=== PATIENT | female | born 1950 | race African-American/Black ===

== ENCOUNTER 2017-12-08 11:17 | Outpatient (CLI) | payer MEDICARE, MEDICAID | END 2017-12-08 11:18 | disposition home or self-care (01) | LOC: BICRAD 11:17 | PROVIDERS: ATTEND Family Medicine | DX: M25.552 Pain in left hip (principal) ==

== ENCOUNTER 2018-01-06 09:22 | Observation (INO) | payer MEDICARE, MEDICAID ==
--- NOTE | 2018-01-06 11:14 | CT ---
CT BRAIN WITHOUT CONTRAST: History: Fall, dizziness, lightheadedness, headache. FINDINGS: Comparison is made with exam of 08-22-11. The low attenuation of the anterior limb of the right internal capsule is stable. There is decreased attenuation in the anterior limb of the left internal capsule which appears to be new. No evidence of cortical infarct, hemorrhage, midline shift, or abnormal extraaxial fluid collections are seen. The ventricular size is normal and the basilar cisterns are patent. The bony calvarium is intact. The vis ualized sinuses and mastoids are well aerated. IMPRESSION: Focus of decreased attenuation in the anterior limb of the left internal capsule. It cannot be said w ith certainty if this is acute or chronic. Further evaluation with MRI would be helpful. POS: [facility]
[2018-01-06 12:49] LABS: #Eosinphils 0.1 thou/uL (0.0-0.7); #Lymphocytes 1.6 thou/uL (1.20-3.40); #Monocytes 0.4 thou/uL (0.11-0.59); #Neutrophils 2.7 thou/uL (1.40-6.50); %Basophils 0.7 % (0.0-1.0); %Eosinophils 2.4 % (0.0-10.0); %Monocytes 7.8 % (0.0-10.0); %Neutrophils 55.1 % (42.0-75.0); Hemoglobin 14.1 g/dL (12.0-16.0); Mean Corpuscular Volume 87.6 fl (81.0-99.0); Mean Platelet Volume 9.6 fL (7.4-10.4); Platelet Count 171 thou/uL (130-400); RBC Distribution Width 12.3 % (11.5-14.5); Red Blood Cell (RBC) Count 5.02 mill/uL (4.20-5.40); White Blood Cell (WBC) Count 4.8 thou/uL (4.8-10.8)
[2018-01-06 13:17] LABS: ALT (SGPT) 8 U/L (8-55); AST (SGOT) 12 U/L (5-34); Albumin 4.2 g/dL (3.4-4.8); Alkaline Phosphatase 92 U/L (40-150); Anion Gap 11 mmol/L (10-20); BUN (Urea Nitrogen) 9 mg/dL (9.8-20.1); Calc. Creatinine Clearance 0 mL/min (70-130); Calcium 9.7 mg/dL (7.8-10.44); Carbon Dioxide 26 mmol/L (23-31); Chloride 105 mmol/L (98-107); Estimated GFR-MDRD 80; Globulin 3.1 g/dL (2.4-3.5); Glucose 91 mg/dL (80-115); Protein, Total 7.3 g/dL (6.0-8.3); Sodium 138 mmol/L (136-145)
[2018-01-06] MEDS ORDERED: Zolpidem Tartrate 5 MG TAB PO PRN (13:29)
[2018-01-06] MEDS ORDERED: Acetaminophen 325 MG TAB PO PRN (13:29)
[2018-01-06] MEDS ORDERED: Guaifenesin DM 100-10/5 ML UDCUP PO PRN (13:29)
[2018-01-06] MEDS ORDERED: Senokot 8.6 MG TAB PO PRN (13:29)
[2018-01-06] MEDS ORDERED: Aspirin 325 mg Enteric Coated Tablet PO SCH (14:00)
--- NOTE | 2018-01-06 14:10 | HP ---
REASON FOR ADMISSION: Possible cerebrovascular accident. HISTORY OF PRESENT ILLNESS: The patient gives history of falling last Friday in the parking lot. She essentially slid down and fell to the floor. She got up by herself and went back to her car, but then has had nagging back pain and left thigh pain since then. So she went to see her primary care physician, Dr. Jaramillo this morning. The patient also mentioned to her that she was swaying more to the left when she is walking. When asked about this, the patient states it is because of pain that she is having. She is a right-handed person. She moves all 4 extremities here in the ER. She has had a CT brain done which shows decreased attenuation in the left internal capsule anterior limb. Has no complaints of chest pain, palpitation, PND or orthopnea. No complaints of any trouble moving any of her lower extremity or upper extremity joints. PAST MEDICAL AND SURGICAL HISTORY: Hypertension. No surgical history. CURRENT MEDICATIONS: Patient is on clonidine 0.1 mg p.o. twice daily, Ambien 5 mg p.o. at bedtime p.r.n. for insomnia. ALLERGIES: RAQUEL INHIBITORS, FLEXERIL, HYDROCHLOROTHIAZIDE, SULFA. PERSONAL HISTORY: Does not abuse alcohol or drugs. No history of smoking. Works in [employer]. Lives with her boyfriend. FAMILY HISTORY: Mother is healthy. She does not know much about her biological father. Has 4 children. Power of meat process worker is her boyfriend, Mr. José Miguel Navas. CODE STATUS: FULL. REVIEW OF SYSTEMS: The following complete review of systems was negative, unless otherwise mentioned in the HPI or below: Constitutional: Weight loss or gain, ability to conduct usual activities. Skin: Rash, itching. Eyes: Double vision, pain. ENT/Mouth: Nose bleeding, neck stiffness, pain, tenderness. Cardiovascular: Palpitations, dyspnea on exertion, orthopnea. Respiratory: Shortness of breath, wheezing, cough, hemoptysis, fever or night sweats. Gastrointestinal: Poor appetite, abdominal pain, heartburn, nausea, vomiting, constipation, or diarrhea. Genitourinary: Urgency, frequency, dysuria, nocturia. Musculoskeletal: Pain, swelling. Neurologic/Psychiatric: Anxiety, depression. Allergy/Immunologic: Skin rash, bleeding tendency. PHYSICAL EXAMINATION: GENERAL: Patient is a 67-year-old female who is currently not in any acute distress. VITAL SIGNS: Blood pressure 158/96, pulse 56 per minute, respiratory rate 16 per minute, temperature 98.8 degrees Fahrenheit, saturating 98% on room air. NECK: Supple, no elevated JVD. EYES: Extraocular muscles intact. Pupils reacting to light. ORAL CAVITY: Mucous membranes are moist. No exudates or congestion. CARDIOVASCULAR SYSTEM: S1, S2 heard. Regular rhythm. RESPIRATORY SYSTEM: Air entry 2+ bilateral. No rales or rhonchi. ABDOMEN: Soft, bowel sounds heard. No tenderness, rigidity or guarding. EXTREMITIES: No peripheral edema or calf tenderness. The patient has tenderness over the left lateral thighs. No obvious contusions, lacerations or external injuries seen. VASCULAR SYSTEM: Peripheral pulses are 2+ bilateral, no ischemic ulcerations or gangrene. CENTRAL NERVOUS SYSTEM: Cranial nerves are grossly intact. Strength is 5/5 in all four extremities. Reflexes are 2+ bilateral. Babinski is downgoing. Cerebellar signs are intact. Gait was not tested. PSYCHIATRIC SYSTEM: The patient's mood is euthymic. No hallucinations or delusions. LABORATORY DATA AND X-RAY FINDINGS: White count of 4, hemoglobin and hematocrit 14 and 44, platelet count 171, MCV is 87 with 55% neutrophils. Electrolytes are stable. BUN 9, creatinine 0.8, and glucose 91. Liver enzymes within normal limits. TSH 0.62, albumin is 4.2. CT brain without contrast done focus of decreased attenuation in the anterior limb of left internal capsule. EKG done shows sinus bradycardia at 52 beats per minute with signs of mild LVH. CLINICAL IMPRESSION AND PLAN: The patient will be under observation on the stroke unit for possible acute cerebrovascular accident on the left side based on CAT scan findings. Clinically, patient does not appear to have any weakness and has equal strength on both sides. We will obtain an MRI, echo with 2D Doppler, and CT scan of the pelvis and plain radiographs of the left knee as well in view of her history of fall and complete stroke protocol. We will place her on aspirin and Lipitor for now. She will be on a small dose of Norvasc for blood pressure. We will continue to closely monitor her on the Stroke Unit. We will follow stroke evidence based protocol. [facility]ENTERKaitlin
--- NOTE | 2018-01-06 14:38 | RAD ---
LEFT KNEE 3 VIEWS: HISTORY: Fall, left knee pain. FINDINGS/IMPRESSION: No fracture or dislocation is seen. No joint effusion is identified. POS: [facility]
[2018-01-06 15:11] VITALS: BMI 27.7
--- NOTE | 2018-01-06 15:25 | RAD ---
AP PELVIS: History: Fall, injury, pelvic pain. FINDINGS/IMPRESSION: There are degenerative changes in the lower lumbar spine and hip joints. No fracture or dislocation i s identified. POS: [facility]
--- NOTE | 2018-01-06 18:30 | MRI ---
MRI OF BRAIN WITHOUT IV CONTRAST 01/06/18 HISTORY: Patient feeling lightheaded and weak and off balance since yesterday. Patient reports headache for th ree days that was worse this morning. Patient has been dropping a lot of things recently. There are scattered punctate and patchy areas of increased FLAIR and T2 weighted signal intensity see n in the periventricular and subcortical white matter which are nonspecific but likely reflective of chronic small vessel ischemic changes. There are focal areas of increased FLAIR and T2 weighted signa l intensity seen at each basal ganglia which were noted on the recent CT scan examination as well and are most compatible with remote lacunar infarctions. There is no evidence of an acute infarction. Th e septum pellucidum and third ventricle are in the midline. The ventricular system is normal in size, shape and position. The distal right vertebral artery is dominant which is a normal variant. The flow voids at the base o f the brain are otherwise within normal limits. Mucosal thickening is present in right anterior ethmoidal air cells. Remainder of the paranasal sinus es and orbits have a normal MRI appearance. There is a subcentimeter increased T2 weighted signal intensity focus seen in the region of the pitui tary gland on the FLAIR and T2 weighted images. This cannot be further evaluated on this examination. This could potentially represent a Rathke's cleft cyst, but further evaluation is warranted. IMPRESSION: 1. Subcentimeter focus of increased T2 weighted signal intensity in the region of the pituitary gland. This cannot be further evaluated on this examination. While this could potentially represent a Rathke's cleft cyst, additional imaging is warranted. A nonemergent MRI brain following the pituitar y mass protocol is recommended. 2. Mild chronic small vessel ischemic changes. 3. Remote lacunar infarctions in each basal ganglia. 4. No acute intracranial abnormality is demonstrated. POS: [facility]
--- NOTE | 2018-01-06 18:32 | CON ---
DATE OF CONSULTATION: 01/06/2018 NEUROLOGY CONSULTATION CONSULTING PHYSICIAN: Hospitalist Service. IMPRESSION: 1. Left internal capsule lacunar infarction resulting in some mild gait instability and right hand c lumsiness. 2. Hypertension. PLAN: 1. Aspirin. 2. Statin. 3. Complete stroke workup. HISTORY OF PRESENT ILLNESS: Ms. Mayfield is a 67-year-old black female, who reports that for the last 3 months she has noticed she has been unsteady on her feet and has some clumsiness in the right hand. She did not seek any medical attention for this until she fell and injured her hip. Fortunately, he r x-rays of the hip were fine. Her CAT scan of the brain showed lacunar infarction in the internal c apsule on the left. EKG showed normal sinus rhythm. She has been admitted for further evaluation. PAST MEDICAL HISTORY: Hypertension. SOCIAL HISTORY: Unremarkable. ALLERGIES: Multiple as per chart. FAMILY HISTORY: Noncontributory. REVIEW OF SYSTEMS: No complaint of difficulty swallowing, facial numbness, slurred speech, double vi allan, headache, vertigo or incontinence. PHYSICAL EXAMINATION: GENERAL: This is a healthy appearing middle-aged woman, in no distress. VITAL SIGNS: Stable and she is afebrile. HEENT: Unremarkable. NECK: Supple. EXTREMITIES: No cyanosis. NEUROLOGIC: She is alert and appropriate. Her speech is fluent and clear. I did not appreciate any weakness or incoordination on exam. Sensation was intact. Plantar responses were equivocal. SUMMARY: A middle-aged woman with hypertension and probably suffered a lacunar infarction 3 months a go. She has been admitted for further evaluation. I will be happy to follow up with her as an outpa tient.
[2018-01-06] MEDS ORDERED: Atorvastatin Calcium 10 MG TAB PO SCH (21:00)
[2018-01-06] MEDS: Famotidine 20 MG TAB PO SCH (21:34)
[2018-01-07 05:57] LABS: #Eosinphils 0.2 thou/uL (0.0-0.7); #Lymphocytes 2.1 thou/uL (1.20-3.40); #Monocytes 0.5 thou/uL (0.11-0.59); #Neutrophils 2.2 thou/uL (1.40-6.50); %Basophils 0.2 % (0.0-1.0); %Eosinophils 3.3 % (0.0-10.0); %Lymphocytes 42.9 % (21.0-51.0); %Monocytes 9.3 % (0.0-10.0); %Neutrophils 44.3 % (42.0-75.0); Hemoglobin 12.4 g/dL (12.0-16.0); Mean Corpuscular HGB CONC 32.5 g/dL (32.0-36.0); Mean Corpuscular Hemoglobin 28.6 pg (27.0-31.0); Mean Corpuscular Volume 88.2 fl (81.0-99.0); Platelet Count 153 thou/uL (130-400); RBC Distribution Width 12.2 % (11.5-14.5); Red Blood Cell (RBC) Count 4.32 mill/uL (4.20-5.40)
[2018-01-07 06:24] LABS: Anion Gap 11 mmol/L (10-20); BUN (Urea Nitrogen) 12 mg/dL (9.8-20.1); Calc. Creatinine Clearance 82 mL/min (70-130); Calcium 9.4 mg/dL (7.8-10.44); Carbon Dioxide 24 mmol/L (23-31); Cardiac Risk 4.7 (Less than 4.5); Chloride 108 mmol/L (98-107); Cholesterol 191 mg/dl (< 200 Desired); Estimated GFR-MDRD 89; Glucose 90 mg/dL (80-115); HDL Cholesterol 41 mg/dL (>60 Neg Risk); LDL Cholesterol, Calculated 132 mg/dL; Potassium 3.9 mmol/L (3.5-5.1); Sodium 139 mmol/L (136-145); Triglycerides 90 mg/dL (Less than 150)
[2018-01-07 08:26] VITALS: TEMP 98.6
[2018-01-07] MEDS ORDERED: Aspirin 325 mg Enteric Coated Tablet PO SCH (09:00)
[2018-01-07] MEDS ORDERED: Amlodipine 5 MG TAB PO SCH (09:00)
[2018-01-07] MEDS ORDERED: Enoxaparin Sodium 40 MG/0.4 ML SYRINGE SC SCH (09:00)
--- NOTE | 2018-01-07 10:07 | PDOC.PN ---
- Subjective Encounter Start Date: 01/07/18 Encounter Start Time: 09:30 Subjective: is amb, feels well -: mild headache - Objective Resuscitation Status: Resuscitation Status FULL:Full Resuscitation MAR Reviewed: Yes Vital Signs & Weight: Vital Signs (12 hours) Temp Pulse Resp BP Pulse Ox 01/07/18 08:00 98.6 F 51 L 16 158/96 H 98 01/07/18 03:37 97.6 F 54 L 16 155/90 H 95 01/07/18 00:03 97.8 F 55 L 14 150/82 H 96 Weight Weight 161 lb 7 oz I&O: 01/06/18 01/07/18 01/08/18 06:59 06:59 06:59 Intake Total 480 120 Balance 480 120 Result Diagrams: 01/07/18 04:47 01/07/18 04:47 Phys Exam - Physical Examination HEENT: PERRLA, moist MMs Neck: no JVD, supple Respiratory: no wheezing, no rales Cardiovascular: RRR, no significant murmur Gastrointestinal: soft, non-tender, positive bowel sounds Musculoskeletal: no edema, pulses present Neurological: non-focal, moves all 4 limbs Psychiatric: normal affect, A&O x 3 Dx/Plan (1) TIA (transient ischemic attack) Status: Resolved (2) Dyslipidemia Code(s): E78.5 - HYPERLIPIDEMIA, UNSPECIFIED Status: Acute (3) Hypertension Code(s): I10 - ESSENTIAL (PRIMARY) HYPERTENSION Status: Chronic Qualifiers: Hypertension type: essential hypertension Qualified Code(s): I10 - Essential (primary) hypertension (4) H/O: CVA (cerebrovascular accident) Code(s): Z86.73 - PRSNL HX OF TIA (TIA), AND CEREB INFRC W/O RESID DEFICITS Status: Chronic Comment: b/l lacunar infarcts in basal ganglia with no residual motor deficits - Plan hemo/neuro stable -: crestor, norvasc and asp -: dc pt home after echo is done * . Review of Systems - Medications/Allergies Allergies/Adverse Reactions: Allergies Allergy/AdvReac Type Severity Reaction Status Date / Time RAQUEL Inhibitors Allergy Verified 01/26/16 20:16 cyclobenzaprine HCl Allergy Verified 01/26/16 20:16 [From Flexeril] hydrochlorothiazide Allergy Verified 01/26/16 20:16 Sulfa (Sulfonamide Allergy Verified 01/26/16 20:16 Antibiotics) Medications: Current Medications Acetaminophen (Tylenol) 650 mg PO Q4H PRN PRN Reason: Headache/Fever or Pain Amlodipine Besylate (Norvasc) 5 mg PO DAILY [facility] Aspirin (Ecotrin) 325 mg PO DAILY [facility] Atorvastatin Calcium (Lipitor) 10 mg PO HS [facility] Last Admin: 01/06/18 21:34 Dose: Not Given Enoxaparin Sodium (Lovenox) 40 mg SC 0900 [facility] Famotidine (Pepcid) 20 mg PO BID [facility] Last Admin: 01/06/18 21:34 Dose: 20 mg Guaifenesin/Dextromethorphan (Robitussin Dm) 15 ml PO Q4H PRN PRN Reason: Cough Senna (Senokot) 2 tab PO HSPRN PRN PRN Reason: Constipation Zolpidem Tartrate (Ambien) 5 mg PO HSPRN PRN PRN Reason: Insomnia Last Admin: 01/06/18 23:51 Dose: 5 mg
[2018-01-07] MEDS: Famotidine 20 MG TAB PO SCH (10:17)
[2018-01-07 12:02] VITALS: BP 138/85
--- NOTE | 2018-01-07 14:16 | DIS ---
DATE OF ADMISSION: 01/06/2018 DATE OF DISCHARGE: 01/07/2018 DISCHARGE DISPOSITION: To home. PRIMARY DISCHARGE DIAGNOSES: Possible transient ischemic attack completely resolved, history of lacu agatha infarcts in the basal ganglia bilaterally, likely due to hypertension. SECONDARY DISCHARGE DIAGNOSES: Hypertension, dyslipidemia. 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 She will nee d nonemergent MRI via primary care physician for pituitary mass protocol, remote lacunar infarcts in each basal ganglia and no acute intracranial abnormality was seen. CT brain done showed focus of dec reased attenuation in the anterior limb of left internal capsule. Left knee x-ray showed no acute fr acture or dislocation. Pelvic x-ray done showed no fractures or dislocations. H&H 12 and 38, platel et count 153, total cholesterol 191, LDL 132. TSH 0.62. BUN 12, and creatinine 0.7. DISCHARGE MEDICATIONS: Aspirin 81 mg p.o. daily, Norvasc 5 mg p.o. daily, Crestor 10 mg p.o. daily, and Ambien 5 mg p.o. at bedtime. ALLERGIES: Allergic to RAQUEL INHIBITORS, FLEXERIL, HYDROCHLOROTHIAZIDE, and SULFA. INPATIENT CONSULTS: Dr. Dean for Neurology. BRIEF COURSE DURING HOSPITALIZATION: The patient initially came to ER with complaints of left-sided weakness. Initial CT was suspicious for possible CVA with findings showing decreased attenuation in the left internal capsule of the anterior limb. The patient did not have any motor weakness on clini vinod exam on arrival. She was placed under observation on the stroke unit and has had complete stroke protocol done. MRI done did not reveal any acute CVA. The patient has remote lacunar infarcts in b oth basal ganglia, likely due to hypertension. 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 She has r emained neurologically stable and hemodynamically stable. Prior to discharge, she is ambulating and eating well. Please note patient's heart rate was dipping into 40s with her taking clonidine at home . In view of this, this has been switched over to Norvasc 5 mg daily. She also needs to take Cresto r 10 mg daily. Please see a [id number] documentation for the day [facility].
== END 2018-01-07 12:37 | disposition home or self-care (01) ==
LOC: ERS 09:22 → EEVIPCON 09:22 → 2SE 11:55
PROVIDERS: ADMIT Internal Medicine; ATTEND Internal Medicine
DX: G81.94 Hemiplegia, unspecified affecting left nondominant side (principal); E78.5 Hyperlipidemia, unspecified; I10 Essential (primary) hypertension; Z88.8 Allergy status to other drugs, medicaments and biological substances; Z86.73 Personal history of transient ischemic attack (TIA), and cerebral infarction without residual deficits
CPT/HCPCS: 70450; 70551; 72170; 73562; 80048; 80061; 85025; 93005; 93306; 97139 ×3; 99285; G0378; G8978; G8979; G8980; G8987; G8988; G8989; 36415; 80053; 84443; J1650

== ENCOUNTER 2018-02-13 13:09 | Outpatient (CLI) | payer MEDICARE, MEDICAID | END 2018-02-13 13:10 | disposition home or self-care (01) | LOC: BICMAMMO 13:09 | PROVIDERS: ATTEND Family Medicine | DX: Z12.31 Encounter for screening mammogram for malignant neoplasm of breast (principal) | CPT/HCPCS: 77063; 77067 ==

== ENCOUNTER 2018-04-19 08:08 | Emergency (ER) | payer MEDICARE, MEDICAID ==
[2018-04-19 08:39] LABS: Bilirubin Negative (Negative); Blood, Urine Negative (Negative); Glucose, Urine (Dipstick) Negative (Negative); Leukocyte Moderate (Negative); Nitrite Negative (Negative); Protein, Urine (Dipstick) Negative (Neg-Trace); Urobilinogen 0.2 mg/dL (0.2-1.0)
[2018-04-19 08:40] LABS: Clarity Hazy (Clear)
[2018-04-19 08:49] LABS: Bacteria/HPF 2+ HPF (None Seen); Hyaline Casts/LPF NONE SEEN LPF (0-3 Hyaline); RBC/HPF None Seen HPF (0-3); Squamous Epithelial 0-3 HPF (0-3)
== END 2018-04-19 09:10 | disposition home or self-care (01) ==
LOC: SCSER 08:08
DX: M54.42 Lumbago with sciatica, left side (principal); N39.0 Urinary tract infection, site not specified; I10 Essential (primary) hypertension; F41.9 Anxiety disorder, unspecified
CPT/HCPCS: 81003; 81015; 99283

== ENCOUNTER 2018-05-09 13:39 | Emergency (ER) | payer MEDICARE, MEDICAID, OTHER | END 2018-05-09 15:05 | disposition home or self-care (01) | LOC: SCSER 13:39 | DX: M54.41 Lumbago with sciatica, right side (principal); M54.42 Lumbago with sciatica, left side; I10 Essential (primary) hypertension; F41.9 Anxiety disorder, unspecified; Z79.899 Other long term (current) drug therapy | CPT/HCPCS: 99283 ==

== ENCOUNTER 2018-07-23 09:34 | Emergency (ER) | payer MEDICARE, MEDICAID, OTHER ==
[2018-07-23] MEDS ORDERED: diphenhydrAMINE 25 MG CAP ONE (10:38)
--- NOTE | 2018-07-23 11:49 | ULT ---
LEFT LOWER EXTREMITY VENOUS DOPPLER: Date: 07/23/18 HISTORY: Left leg pain. COMPARISON: None. FINDINGS: Real-time Chappell scale and color Doppler with spectral analysis of the left lower extremity venous sys tem was performed. The common femoral, femoral, proximal portions of greater saphenous and deep femor al vein, as well as the popliteal and posterior tibial veins were interrogated. Normal flow, augmentation, and compression. IMPRESSION: No deep venous thrombosis. POS: [facility]
== END 2018-07-23 12:06 | disposition home or self-care (01) ==
LOC: SCSER 09:34
DX: H02.845 Edema of left lower eyelid (principal); H02.844 Edema of left upper eyelid; M79.605 Pain in left leg; I10 Essential (primary) hypertension; F41.9 Anxiety disorder, unspecified; Z79.899 Other long term (current) drug therapy

== ENCOUNTER 2019-01-09 08:52 | Emergency (ER) | payer MEDICARE, OTHER ==
[2019-01-09] MEDS ORDERED: Ibuprofen 200 MG TAB ONE (09:05)
== END 2019-01-09 09:30 | disposition home or self-care (01) ==
LOC: SCSER 08:52
DX: J20.9 Acute bronchitis, unspecified (principal); J06.9 Acute upper respiratory infection, unspecified; I10 Essential (primary) hypertension; F41.9 Anxiety disorder, unspecified; Z79.899 Other long term (current) drug therapy
CPT/HCPCS: 87804; 99283

== ENCOUNTER 2019-06-25 07:38 | Emergency (ER) | payer MEDICARE, OTHER ==
[2019-06-25] MEDS ORDERED: diphenhydrAMINE 25 MG CAP ONE (07:56)
[2019-06-25] MEDS ORDERED: predniSONE 20 MG TAB ONE (08:13)
== END 2019-06-25 09:12 | disposition home or self-care (01) ==
LOC: SCSER 07:38
DX: T78.40XA Allergy, unspecified, initial encounter (principal); I10 Essential (primary) hypertension; Z79.899 Other long term (current) drug therapy
CPT/HCPCS: 99283; J7512; Q0163

== ENCOUNTER 2019-08-04 17:53 | Emergency (ER) | payer MEDICARE, OTHER, MEDICAID ==
[2019-08-04 18:44] LABS: Hemoglobin 13.8 g/dL (12.0-16.0); Mean Corpuscular Hemoglobin 27.9 pg (27.0-31.0); Mean Corpuscular Volume 87.2 fL (78.0-98.0); Mean Platelet Volume 8.3 fL (7.4-10.4); Platelet Count 225 thou/uL (130-400); RBC Distribution Width 13.1 % (11.5-14.5); Red Blood Cell (RBC) Count 4.94 mill/uL (4.20-5.40)
[2019-08-04 18:45] LABS: ALT (SGPT) 14 U/L (8-55); AST (SGOT) 16 U/L (5-34); Albumin 4.4 g/dL (3.4-4.8); Alkaline Phosphatase 77 U/L (40-150); Anion Gap 13 mmol/L (10-20); BUN (Urea Nitrogen) 14 mg/dL (9.8-20.1); Bilirubin, Total 0.5 mg/dL (0.2-1.2); Calc. Creatinine Clearance 0 mL/min (70-130); Calcium 10.1 mg/dL (7.8-10.44); Carbon Dioxide 25 mmol/L (23-31); Chloride 107 mmol/L (98-107); Estimated GFR-MDRD 67; Globulin 3.4 g/dL (2.4-3.5); Glucose 96 mg/dL (80-115); Potassium 3.6 mmol/L (3.5-5.1); Protein, Total 7.8 g/dL (6.0-8.3)
[2019-08-04 18:49] LABS: Sodium 141 mmol/L (136-145)
[2019-08-04 18:53] LABS: Band 2 % (5-11); Eosinophils 2 % (0-10); Lymphocytes 34 % (21-51); MDiff Complete? YES; Monocytes 6 % (0-10); Neutrophil 54 % (42-75); Platelet Morphology Comment Appears Adequate; RBC Morphology Normal
== END 2019-08-04 19:08 | disposition home or self-care (01) ==
LOC: SCSER 17:53
DX: R60.0 Localized edema (principal); I10 Essential (primary) hypertension; Z79.899 Other long term (current) drug therapy
CPT/HCPCS: 36415; 80053; 83880; 84484; 85025; 93005